=== PATIENT | male | born 1955 | race African-American/Black ===

== ENCOUNTER 2021-06-13 04:33 | Day surgery (SDC) | payer OTHER ==
[2021-06-12 15:12] VITALS: BMI 26.9
[2021-06-13] MEDS ORDERED: LIDOCAINE HCL 1%, 10 MG/ML (20ML VIAL) ONE ×2 (07:26→08:25)
[2021-06-13] MEDS ORDERED: BUPIVACAINE HCL/PF 0.5% (5MG/ML) 10 ML VIAL ONE ×2 (07:26→08:25)
[2021-06-13] MEDS ORDERED: MIDAZOLAM HCL 2 MG/2 ML SINGLE DOSE VIAL ONE ×4 (07:45→08:24)
[2021-06-13] MEDS ORDERED: PROPOFOL 20 ML ONE (07:45)
[2021-06-13] MEDS ORDERED: CLINDAMYCIN PHOSPHATE 600 MG/4 ML VIAL IVPB ONE (07:58)
[2021-06-13] MEDS ORDERED: BUPIVACAINE HCL/PF 0.5% (5MG/ML) 10 ML VIAL IJ ONE (08:05)
[2021-06-13] MEDS ORDERED: LIDOCAINE HCL 1%, 10 MG/ML (50 mL VIAL) INF ONE (08:05)
[2021-06-13] MEDS ORDERED: ONDANSETRON 4 MG/2 ML VIAL IVPUSH PRN (08:58)
[2021-06-13] MEDS ORDERED: PROMETHAZINE HCL 25 MG/1 ML VIAL IVPUSH PRN (08:58)
[2021-06-13] MEDS ORDERED: oxyCODONE HCL 5 MG TABLET PO PRN (08:58)
[2021-06-13 12:01] VITALS: BP 182/93; PULSE 54; TEMP 97.8
== END 2021-06-13 12:13 | disposition home or self-care (01) ==
LOC: JASU-SURG 04:33
PROVIDERS: ATTEND Surgery
PROC: 0JB70ZZ Excision of Back Subcutaneous Tissue and Fascia, Open Approach (ICD-10-PCS; 2021-06-13)
PROC: 0JQ70ZZ Repair Back Subcutaneous Tissue and Fascia, Open Approach (ICD-10-PCS; principal; 2021-06-13 07:30)
DX: L72.3 Sebaceous cyst (principal)
CPT/HCPCS: 88307-TC; 94760